=== PATIENT | male | born 1985 | race Caucasian/White ===

== ENCOUNTER 2017-04-10 04:04 | Emergency (ER) | payer OTHER ==
--- NOTE | 2017-04-10 04:24 | PDOC ---
History of Present Illness - General Stated Complaint: SIDE PAIN Time Seen by Provider: 04/10/17 04:24 - History of Present Illness Initial Comments: 04/10/17 04:35 Patient is a 31 y.o. male who presents with acute onset of R sided non- qualifiable ("it hurt") flank pain that intermittent, 10/10 and non-radiating. Patient states the pain woke him from sleep this morning. Patient's most recent bowel movement and urination were @ 3 a.m. this morning and he noted some dysuria with no lionel blood. Patient denies any fever or chills or bowel incontinence, testicular pain or abdominal cramping and he endorses some urinary hesitancy. Patient notes a remote h/o nephrolithiasis and states the pain is similar. NKDA Surgical: denies Social: denies nicotine, denies alcohol, denies recreational drugs PMD: Dr. Corby Westfall Past History - Past Medical History Allergies/Adverse Reactions: Allergies Allergy/AdvReac Type Severity Reaction Status Date / Time No Known Allergies Allergy Verified 04/10/17 04:34 Home Medications: Ambulatory Orders Naproxen [Naprosyn -] 500 mg PO BID #14 tablet 10/22/15 - Immunization History Immunization Up to Date: Yes - Suicide/Smoking/Psychosocial Hx Smoking History: Never smoked Hx Alcohol Use: No Drug/Substance Use Hx: No Substance Use Type: None Review of Systems - Review of Systems Constitutional: No: Chills, Fever Respiratory: No: Shortness of Breath Cardiac (ROS): No: Chest Pain ABD/GI: No: Constipated, Diarrhea, Nausea, Vomiting : Yes: Dysuria, Flank Pain (R sided intermittent flank pain) *Physical Exam - Physical Exam General Appearance: Yes: Nourished, Appropriately Dressed Neck: positive: Trachea midline, Supple Respiratory/Chest: positive: Lungs Clear Cardiovascular: positive: S1, S2 Gastrointestinal/Abdominal: positive: Normal Bowel Sounds, Soft Musculoskeletal: positive: CVA Tenderness (R). negative: CVA Tenderness (L), Vertebral Tenderness Extremity: positive: Normal Capillary Refill, Normal Inspection Integumentary: positive: Normal Color, Dry, Warm Neurologic: positive: Fully Oriented, Alert ED Treatment Course - LABORATORY CBC & Chemistry Diagram: 04/10/17 04:50 04/10/17 04:50 Medical Decision Making - Medical Decision Making 04/10/17 04:42 Patient is a 31 y.o. male who presents with acute onset of R sided flank pain. As patient c/o associated dysuria initial DDx is for UTI/Pyelonephritis vs. Nephrolithiasis. Low clinical suspicion for acute SC pathology as patient denies bladder/bowel incontinence and is neurologically intact and has no vertebral tenderness on PE. PLAN: 1. UA/Urine Culture 2. Spiral CT 04/10/17 06:55 UA significant for 3+ blood. Nitrite (-), Leukocyte Esterase (-) Patient resting comfortably. Pain well controlled. Patient aware and understands plan. 04/10/17 07:24 Patient signed out to Dr. Smith (Resident) and Dr. Joseph (Attending). Awaiting CT retrieval/read *DC/Admit/Observation/Transfer Diagnosis at time of Disposition: Flank pain - Referrals - Patient Instructions - Post Discharge Activity
[2017-04-10 04:31] VITALS: BMI 29.7
[2017-04-10] MEDS ORDERED: KETOROLAC TROMETHAMINE 30 MG/1 ML VIAL IM ONE (04:55)
--- NOTE | 2017-04-10 04:55 | PDOC ---
Attending Attestation - Resident Resident Name: Raquel Richmond - ED Attending Attestation I have performed the following: I have examined & evaluated the patient, The case was reviewed & discussed with the resident, I agree w/resident's findings & plan, Exceptions are as noted <Keysha Ricean - Last Filed: 04/10/17 04:55> - HPI HPI: 04/10/17 04:59 Patient is a 31 year old male with no significant past medical history who presents to the ED with complaints of right sided flank pain. Patient reports experiencing right sided flank pain this morning at 3am while at home. Patient rates pain to be an intense 10/10 pain that woke him up from sleep. He reports last bowel movement was at 3 am, and states experiencing some dysuria while urinating this morning. Denies nausea, vomiting. Denies constipation, diarrhea. Deniea fevers, chills. Denies contact with sick individual, out of state travel. Denies change in food or drink intake. Denies any other symptoms. Allergies: None Social history: No smoking. No alcohol. No illicit drugs. Surgical history: None PMD: Dr. Corby Westfall <Jose Lan - Last Filed: 04/10/17 05:47>
[2017-04-10] MEDS ORDERED: KETOROLAC TROMETHAMINE 60 MG/2 ML VIAL IM ONE (04:56)
[2017-04-10] MEDS ORDERED: KETOROLAC TROMETHAMINE 60 MG/2 ML VIAL IVPUSH ONE (04:59)
[2017-04-10] MEDS ORDERED: SODIUM CHLORIDE 0.9% 1000 ML INFUS.BAG IV ONE (04:59)
[2017-04-10 05:06] LABS: BASOPHIL 0.8 % (0-2.0); EOSINOPHIL 14.4 % (0-4.5); MCH 29.8 pg (25.7-33.7); MCHC 34.4 g/dl (32.0-35.9); MEAN CELL VOLUME 86.7 fl (80-96); MEAN PLT VOLUME 8.4 fl (7.5-11.1); NEUTROPHILS 45.2 % (42.8-82.8); PLATELET COUNT 283 K/MM3 (134-434); RDW 12.6 % (11.9-15.9); WHITE BLOOD COUNT 8.7 K/mm3 (4.0-10.0)
[2017-04-10] MEDS ORDERED: KETOROLAC TROMETHAMINE 60 MG/2 ML VIAL ONE (05:27)
[2017-04-10 05:28] LABS: ALBUMIN 4.1 g/dl (3.4-5.0); ALK PHOS 72 U/L (45-117); ANION GAP 5 (8-16); BILIRUBIN,TOTAL 0.5 mg/dL (0.2-1.0); CALCIUM 9.2 mg/dL (8.5-10.1); CO2 28 mmol/L (21-32); CREATININE 0.9 mg/dL (0.7-1.3); GLUCOSE,RANDOM 121 mg/dL (74-106); SGOT/AST 33 U/L (15-37); SGPT/ALT 97 U/L (12-78); TOT PROT 7.5 g/dl (6.4-8.2)
[2017-04-10 06:26] LABS: URINE APPEARANCE SLCLOUDY; URINE BILIRUBIN NEGATIVE (NEGATIVE); URINE BLOOD 3+ (NEGATIVE); URINE COLOR YELLOW; URINE GLUCOSE (UA) NEGATIVE (NEGATIVE); URINE KETONE NEGATIVE (NEGATIVE); URINE LEUK ESTERASE NEGATIVE (NEGATIVE); URINE NITRITE NEGATIVE (NEGATIVE); URINE PROTEIN NEGATIVE (NEGATIVE); URINE UROBILINOGEN NEGATIVE mg/dL (0.2-1.0)
[2017-04-10 06:41] LABS: CALCIUM OXALATE CRYSTALS RARE /hpf (NONE SEEN); URINE BACTERIA RARE /hpf (NONE SEEN); URINE MUCUS FEW; URINE RBC 146 /hpf (0-3); URINE WBC 4 /hpf (3-5)
--- NOTE | 2017-04-10 07:24 | PDOC ---
*Physical Exam - Vital Signs Last Vital Signs Temp Pulse Resp BP Pulse Ox 98.1 F 55 L 18 109/70 97 04/10/17 04:28 04/10/17 04:28 04/10/17 04:28 04/10/17 04:28 04/10/17 04:28 ED Treatment Course - LABORATORY CBC & Chemistry Diagram: 04/10/17 04:50 04/10/17 04:50 - ADDITIONAL ORDERS Additional order review: Laboratory Results 04/10/17 04/10/17 06:10 04:50 Sodium 138 Potassium 3.9 Chloride 105 Carbon Dioxide 28 Anion Gap 5 L BUN 15 Creatinine 0.9 Creat Clearance w eGFR > 60 Random Glucose 121 H Calcium 9.2 Total Bilirubin 0.5 D AST 33 D ALT 97 H D Alkaline Phosphatase 72 D Total Protein 7.5 Albumin 4.1 Urine Color Yellow Urine Appearance Slcloudy Urine pH 5.0 Ur Specific [place] 1.019 Urine Protein Negative Urine Glucose (UA) Negative Urine Ketones Negative Urine Blood 3+ H Urine Nitrite Negative Urine Bilirubin Negative Urine Urobilinogen Negative Urine WBC (Auto) 4 Urine RBC (Auto) 146 Ur Epithelial Cells Rare Calcium Oxalate Crystal Rare Urine Bacteria Rare Urine Mucus Few 04/10/17 04:50 RBC 5.33 MCV 86.7 MCHC 34.4 RDW 12.6 MPV 8.4 Neutrophils % 45.2 Lymphocytes % 33.4 D Monocytes % 6.2 Eosinophils % 14.4 H D Basophils % 0.8 - Medications Given in the ED: ED Medications Discontinued Medications Generic Name Dose Route Start Last Admin Trade Name Freq PRN Reason Stop Dose Admin Ketorolac Tromethamine 60 mg 04/10/17 04:59 04/10/17 05:24 Toradol Injection - IVPUSH 04/10/17 05:00 60 mg ONCE ONE Administration Sodium Chloride 1,000 ml 04/10/17 04:59 04/10/17 05:24 Normal Saline - IV 04/10/17 05:00 1,000 ml ONCE ONE Administration Medical Decision Making - Medical Decision Making 04/10/17 07:24 Care taken over from Dr. Richmond. 04/10/17 10:18 CT returned positive for bilateral nephrolithiasis. Will d/c w/ Rx for motrin and instructions to return as needed for continuing pain. *DC/Admit/Observation/Transfer Diagnosis at time of Disposition: Flank pain, Nephrolithiasis - Discharge Dispostion Disposition: HOME - Referrals - Patient Instructions Printed Discharge Instructions: Kidney Stones -- Adult Additional Instructions: Please return to ER if any continued pain, pain not controllable by medications given, fever, chills, or any other concerning symptoms. - Post Discharge Activity
[2017-04-10 10:56] VITALS: BP 112/65; PULSE 62
[2017-04-10 10:58] VITALS: TEMP 98.6
[2017-04-10 17:49] LABS: URINE LEUK ESTERASE Negative (NEGATIVE)
== END 2017-04-10 10:58 | disposition home or self-care (01) ==
LOC: JER 04:04
PROC: 3E0337Z Introduction of Electrolytic and Water Balance Substance into Peripheral Vein, Percutaneous Approach (ICD-10-PCS; principal; 2017-04-10)
PROC: 3E0333Z Introduction of Anti-inflammatory into Peripheral Vein, Percutaneous Approach (ICD-10-PCS; 2017-04-10)
DX: R10.31 Right lower quadrant pain (principal)
CPT/HCPCS: 36415; 74176; 80053; 81003; 81015; 85025; 87086; 96374; 99284-25

== ENCOUNTER 2020-10-30 16:30 | Emergency (ER) | payer OTHER ==
[2020-10-30 16:39] VITALS: BP 119/75; PULSE 89; TEMP 98.3; BMI 34.4
[2020-10-30] MEDS ORDERED: ACETAMINOPHEN INJECTION 100 ML IVPB ONE (18:23)
[2020-10-30] MEDS ORDERED: ACETAMINOPHEN 1000 MG/100 ML VIAL (NON FORMULARY) IVPB ONE (18:27)
[2020-10-30 18:39] LABS: BASO % 1.1 % (0-2.0); EOS % 6.6 % (0-4.5); HEMATOCRIT 42.2 % (35.4-49); HEMOGLOBIN 14.6 GM/dL (11.7-16.9); LYMPH % 29.9 % (8-40); MCH 30.1 pg (25.7-33.7); MCHC 34.7 g/dl (32.0-35.9); MEAN CELL VOLUME 86.7 fl (80-96); MONO % 6.5 % (3.8-10.2); NEUT % 55.9 % (42.8-82.8); PLATELET COUNT 284 10^3/uL (134-434); RBC 4.86 M/mm3 (4.00-5.60)
[2020-10-30 18:49] LABS: INR 0.97 (0.83-1.09)
[2020-10-30 18:52] LABS: ACTIVATED PTT 30.1 SECONDS (25.2-36.5)
[2020-10-30 18:58] LABS: CALCIUM 8.9 mg/dL (8.5-10.1)
[2020-10-30 18:59] LABS: BLOOD UREA NITROGEN 13.3 mg/dL (7-18)
[2020-10-30 19:02] LABS: CREATININE 0.8 mg/dL (0.55-1.3)
[2020-10-30 19:03] LABS: BILIRUBIN,TOTAL 0.3 mg/dL (0.2-1); TOT PROT 7.4 g/dl (6.4-8.2)
[2020-10-30] MEDS ORDERED: CIPROFLOXACIN 500 MG TABLET (RESTRICTED TO ID) PO ONE (21:44)
[2020-10-30] MEDS ORDERED: metroNIDAZOLE 250 MG TABLET PO ONE (21:44)
[2020-10-30] MEDS ORDERED: metroNIDAZOLE 250 MG TABLET ONE (21:51)
[2020-10-30 22:10] LABS: URINE APPEARANCE CLEAR; URINE BILIRUBIN NEGATIVE (NEGATIVE); URINE COLOR YELLOW; URINE GLUCOSE (UA) NEGATIVE (NEGATIVE); URINE KETONE NEGATIVE (NEGATIVE); URINE LEUK ESTERASE NEGATIVE (NEGATIVE); URINE NITRITE NEGATIVE (NEGATIVE); URINE PROTEIN NEGATIVE (NEGATIVE)
== END 2020-10-30 22:17 | disposition home or self-care (01) ==
LOC: JER 16:30
PROC: 3E0333Z Introduction of Anti-inflammatory into Peripheral Vein, Percutaneous Approach (ICD-10-PCS; principal; 2020-10-30)
DX: K38.8 Other specified diseases of appendix (principal)
CPT/HCPCS: 36415; 71046-TC-FY; 74177-TC; 80053; 81003; 83690; 85025; 85610; 85730; 86850; 86900; 86901; 87086; 93005; 93010; 99285-25; J0131; Q9967

== ENCOUNTER 2021-06-08 17:53 | Emergency (ER) | payer OTHER ==
[2021-06-08 18:29] VITALS: BP 132/81; PULSE 64; TEMP 97.9; BMI 32.8
[2021-06-08] MEDS ORDERED: KETOROLAC TROMETHAMINE 30 MG/1 ML VIAL IVPUSH ONE (19:41)
[2021-06-08] MEDS ORDERED: KETOROLAC TROMETHAMINE 30 MG/1 ML VIAL ONE (19:45)
[2021-06-08 20:03] LABS: EPI CELLS 2 /uL (0-25.1); HYALINE CASTS 0 /uL (0-3.1); PH,URINE 7.5 (5.0-8.0); URINE APPEARANCE CLEAR; URINE BACTERIA 2 /uL (0-1359); URINE BILIRUBIN NEGATIVE (NEGATIVE); URINE COLOR YELLOW; URINE GLUCOSE (UA) NEGATIVE (NEGATIVE); URINE KETONE NEGATIVE (NEGATIVE); URINE LEUK ESTERASE NEGATIVE (NEGATIVE); URINE NITRITE NEGATIVE (NEGATIVE); URINE PROTEIN NEGATIVE (NEGATIVE); URINE RBC 32 /uL (0-23.9); URINE UROBILINOGEN 0.2 mg/dL (0.2-1.0); URINE WBC 4 /uL (0-25.8)
[2021-06-08] MEDS ORDERED: MAG HYDROX/AL HYDROX/SIMETH 30 ML UNIT-DOSE CUP PO ONE (20:03)
[2021-06-08] MEDS ORDERED: FAMOTIDINE 20 MG TABLET PO ONE (20:03)
[2021-06-08] MEDS ORDERED: FAMOTIDINE 20 MG TABLET ONE (20:07)
[2021-06-08] MEDS ORDERED: MAG HYDROX/AL HYDROX/SIMETH 30 ML UNIT-DOSE CUP ONE (20:07)
[2021-06-08] MEDS ORDERED: SODIUM CHLORIDE 0.9% 500 ML INFUS.BAG IV ONE (20:12)
[2021-06-08] MEDS ORDERED: KETOROLAC TROMETHAMINE 30 MG/1 ML VIAL IM ONE (20:19)
[2021-06-08 21:15] LABS: BASO % 0.6 % (0-2.0); EOS % 4.1 % (0-4.5); HEMATOCRIT 37.6 % (35.4-49); LYMPH % 20.6 % (8-40); MCH 29.6 pg (25.7-33.7); MCHC 34.5 g/dl (32.0-35.9); MEAN CELL VOLUME 85.7 fl (80-96); MONO % 7.6 % (3.8-10.2); NEUT % 67.1 % (42.8-82.8); PLATELET COUNT 269 10^3/uL (134-434); RBC 4.39 M/mm3 (4.00-5.60); RDW 12.9 % (11.9-15.9); WHITE BLOOD COUNT 10.6 K/mm3 (4.0-10.0)
[2021-06-08 21:42] LABS: ALBUMIN 3.7 g/dl (3.4-5.0); BLOOD UREA NITROGEN 20.7 mg/dL (7-18); CALCIUM 8.3 mg/dL (8.5-10.1)
[2021-06-08 21:46] LABS: CREATININE 1.2 mg/dL (0.55-1.3)
[2021-06-08 21:47] LABS: BILIRUBIN,TOTAL 0.2 mg/dL (0.2-1); TOT PROT 6.8 g/dl (6.4-8.2)
[2021-06-08] MEDS ORDERED: TAMSULOSIN HCL 0.4 MG CAP PO ONE (22:06)
[2021-06-08] MEDS ORDERED: TAMSULOSIN HCL 0.4 MG CAP ONE (22:21)
== END 2021-06-08 22:35 | disposition home or self-care (01) ==
LOC: JER 17:53
PROC: 3E0333Z Introduction of Anti-inflammatory into Peripheral Vein, Percutaneous Approach (ICD-10-PCS; principal; 2021-06-08)
PROC: 3E0233Z Introduction of Anti-inflammatory into Muscle, Percutaneous Approach (ICD-10-PCS; 2021-06-08)
DX: N20.0 Calculus of kidney (principal)
CPT/HCPCS: 36415; 74176-TC; 80053; 81003; 85025; 87086; 99284-25; C9803; U0003; U0005

== ENCOUNTER 2021-07-16 04:28 | Day surgery (SDC) | payer OTHER ==
[2021-07-12 15:51] VITALS: BMI 33.9
[2021-07-16] MEDS ORDERED: DEXAMETHASONE SOD PHOSPHATE 4 MG/1 ML VIAL ONE (13:15)
[2021-07-16] MEDS ORDERED: PROPOFOL 20 ML ONE ×2 (13:15→13:19)
[2021-07-16] MEDS ORDERED: LIDOCAINE HCL/PF 2% SDV 5ML VIAL ONE (13:15)
[2021-07-16] MEDS ORDERED: MIDAZOLAM HCL 2 MG/2 ML SINGLE DOSE VIAL ONE (13:15)
[2021-07-16] MEDS ORDERED: oxyCODONE HCL 5 MG TABLET PO PRN (13:23)
[2021-07-16] MEDS ORDERED: ONDANSETRON 4 MG/2 ML VIAL IVPUSH PRN (13:23)
[2021-07-16] MEDS ORDERED: PROMETHAZINE HCL 25 MG/1 ML VIAL IVPUSH PRN (13:23)
[2021-07-16] MEDS ORDERED: LACTATED RINGERS SOLUTION 1,000 ML IV SCH (13:30)
[2021-07-16] MEDS ORDERED: ceFAZolin SODIUM 1 GM VIAL ONE (14:13)
[2021-07-16] MEDS ORDERED: ceFAZolin 2 GRAM PREMIX BAG IVPB ONE (14:13)
[2021-07-16] MEDS ORDERED: LIDOCAINE HCL 2% JELLY 10 ML CARTRIDGE TP ONE (14:28)
[2021-07-16 16:47] VITALS: TEMP 97.7
[2021-07-16 18:21] VITALS: BP 125/75; PULSE 87
== END 2021-07-16 17:25 | disposition home or self-care (01) ==
LOC: JASU-SURG 04:28
PROVIDERS: ATTEND Urology
PROC: 0TC78ZZ Extirpation of Matter from Left Ureter, Via Natural or Artificial Opening Endoscopic (ICD-10-PCS; principal; 2021-07-16 14:00)
PROC: 0T778DZ Dilation of Left Ureter with Intraluminal Device, Via Natural or Artificial Opening Endoscopic (ICD-10-PCS; 2021-07-16 14:00)
DX: N20.1 Calculus of ureter (principal)
CPT/HCPCS: 36415; 76000-TC-FY; 82360; 88304-TC; 94760